=== PATIENT | male | born 1980 | race Caucasian/White ===

== ENCOUNTER 2016-10-11 08:08 | Inpatient (IN) | payer BC ==
[~2016-10-11] VITALS: Ht 188 cm; Wt 161.0 kg
[~2016-10-11 08:08] MED LIST: ALBUTEROL SULF8.5 GM IH; ALLOPURINOL300 MG PO; BUPROPION XL300 MG PO; GLUCOPHAGE1000 MG PO; HYCODAN SYRUP480 ML PO; INDOMETHACIN25 MG PO; LISINOPRIL2.5 MG PO; PREDNISONE20 MG PO
[2016-10-11 09:19] VITALS: BP 140/80
[2016-10-11 09:47] LABS: POINT-OF-CARE METER ID UU14174212
[2016-10-11 13:16] LABS: POINT-OF-CARE METER ID UU13113675
[2016-10-11 14:00] VITALS: BP 134/75
[2016-10-11 15:33] VITALS: BP 131/68
[2016-10-11 17:42] LABS: POINT-OF-CARE METER ID UU14162508
[2016-10-11 19:35] VITALS: BP 119/67
[2016-10-11 22:54] VITALS: BP 130/59
[2016-10-12 00:18] LABS: POINT-OF-CARE METER ID UU14162508
[2016-10-12 03:38] VITALS: BP 116/58
[2016-10-12 06:05] LABS: POINT-OF-CARE METER ID UU14162508
[2016-10-12 07:01] LABS: HEMATOCRIT 44.5 % (38.0-50.0); MCH 29.4 PG (29.0-34.0); MCHC 34.8 G/DL (30.0-36.0); MCV 84.3 FL (86-99); MEAN PLAT.VOLUME 10.2 uM^3 (9.0-12.4); PLATELET COUNT 287 K/uL (156-360); RBC DIS.WIDTH-CV 12.3 % (11.8-14.6); RBC DIS.WIDTH-SD 37.7 % (39-53); RED BLOOD COUNT 5.28 M/uL (4.00-5.50)
[2016-10-12 07:16] VITALS: BP 126/61
[2016-10-12 07:32] LABS: ANION GAP 8 MEQ/L (2-14); CHLORIDE 96 MEQ/L (99-109); GFR ESTIMATE (CALCULATED) > 59 mL/min/; GLUCOSE 251 mg/dL (70-99); MAGNESIUM 2.2 mg/dl (1.3-2.7); SAMPLE HEMOLYSIS CHECK 4; SAMPLE ICTERIC CHECK 0; SAMPLE LIPEMIA CHECK 0; SODIUM 134 MEQ/L (136-147); UREA NITROGEN (BUN) 10 mg/dL (9-23)
[2016-10-12 07:55] LABS: WHITE BLOOD COUNT 17.6 K/uL (4.1-10.2)
[2016-10-12] MEDS ORDERED: HYDROCODON-ACE1 EAC7 PO (08:09)
== END 2016-10-12 09:24 | disposition home or self-care (01) | DRG 621 ==
LOC: 2SOUTH 08:08 → 2EAST 13:44 → 2SOUTH 14:26 → 2EAST 10-12 09:24
PROVIDERS: Surgery
PROC: 0DB64Z3 Excision of Stomach, Percutaneous Endoscopic Approach, Vertical (ICD-10-PCS; principal; 2016-10-11)
DX: E66.01 Morbid (severe) obesity due to excess calories (principal); Z68.42 Body mass index [BMI] 45.0-49.9, adult; I10 Essential (primary) hypertension; E11.9 Type 2 diabetes mellitus without complications; M10.9 Gout, unspecified
CPT/HCPCS: 36415; 80048; 80053; 82948; 83735; 84100; 84999; 85025; 85027; 85610; 85730; C9113; J0131; J0330; J0690; J1100; J1170; J1644; J1650; J1815; J2250; J2270; J2405; J2710; J2765; J3010; J3480; J7120; Q0169; S0020